=== PATIENT | male | born 2000 | race Two or more races ===

== ENCOUNTER 2021-12-25 10:41 | Emergency (ER) | payer MEDICAID, OTHER ==
[~2021-12-25] VITALS: Ht 172.7 cm; Wt 68.2 kg
[~2021-12-25 10:41] MED LIST: ACYC5CRE2 TP; MONT10TA21 PO; ONDA4TAB12 PO
[2021-12-25 10:49] VITALS: BP 125/78
== END 2021-12-25 13:52 | disposition left against medical advice (07) ==
LOC: ER 10:41 → MERGE 10:41 → ER 13:52
DX: R11.10 Vomiting, unspecified (principal); Z53.21 Procedure and treatment not carried out due to patient leaving prior to being seen by health care provider

== ENCOUNTER 2021-12-25 23:18 | Emergency (ER) | payer MEDICAID ==
[~2021-12-25] VITALS: Ht 172.7 cm; Wt 68.2 kg
[2021-12-26 06:49] VITALS: BP 128/86
--- NOTE | 2021-12-26 07:18 | NUR ---
xochilt/ evin [phone]
--- NOTE | 2021-12-26 07:24 | NUR ---
Spoke to Dr. Crisostomo regarding mom's request for repeat lab and ct abdomen,pt now c/o left upper abdominal pain and emesis x 20 since pt arrived-RN did not witnessed.No order at this time.Mom/ evin made aware.Pt sent out to the parking lot/in the car with mom due to covid positive.
== END 2021-12-26 10:01 | disposition left against medical advice (07) ==
LOC: ER 23:19
DX: R11.10 Vomiting, unspecified (principal); Z53.21 Procedure and treatment not carried out due to patient leaving prior to being seen by health care provider